=== PATIENT | male | born 1975 | race Caucasian/White ===

== ENCOUNTER 2018-06-24 10:44 | Observation (INO) ==
[2018-06-24 11:50] LABS: Baso % (Auto) 0.4 % (0.0-2.0); Eos # (Auto) 0.2 th/mm3 (0.0-0.4); Eos % (Auto) 4.3 % (0.0-4.0); Hematocrit 42.6 % (39.0-51.0); Hemoglobin 14.8 gm/dL (13.0-17.0); Lymph # (Auto) 1.7 th/mm3 (1.0-4.8); Mean Corpuscular HGB Conc 34.8 % (32.0-36.0); Mean Corpuscular Hemoglobin 31.1 pg (27.0-34.0); Mean Corpuscular Volume 89.3 fL (80.0-100.0); Mean Platelet Volume 8.2 fL (7.0-11.0); Mono # (Auto) 0.6 th/mm3 (0.0-0.9); Mono % (Auto) 9.6 % (0.0-8.0); Neut # (Auto) 3.3 th/mm3 (1.8-7.7); Neut % (Auto) 56.7 % (16.0-70.0); Platelet Count 147 th/mm3 (150-450); Red Blood Count 4.77 mil/mm3 (4.50-5.90); White Blood Count 5.8 th/mm3 (4.0-11.0)
--- NOTE | 2018-06-24 11:55 | ED ---
HPI General Chief Complaint: Chest Pain Stated Complaint: Chest pains Time Seen by Provider: 06/24/18 11:04 Source: patient Mode of arrival: ambulatory Limitations: no limitations History of Present Illness HPI narrative: Patient is a 43-year-old male presenting to the emergency department for evaluation of chest pain. Patient states it started last , and lasted for a few minutes. It was midsternal, sharp as if an ice pick was stabbing him in the chest. At that time he felt tingling in his arms, short of breath and felt dizzy. This resolved on its own. Patient was not exerting himself when it occurred. Since that time patient reports intermittent chest tightness, he feels as if he has cracked ribs and it hurts to breathe. Patient reports that he had flulike symptoms a week prior and initially attributed to that. He took some time off from working out at the gym. He went back yesterday and was jogging when the tightness resumed, he felt nauseated and he states his heart rate was elevated more than it normally would be when he is running. At that time the pain was a 9 out of 10, pain did not radiate. Symptoms started abruptly, they resolve on their own. Patient denies any family history of early heart disease. He denies any illicit drug use or tobacco use. Patient denies any history of heart disease hypertension. Patient went to [facility] this morning for routine checkup and was advised to come to the emergency department. MD complaint: chest pain STEMI Alert: No Onset (ago): week(s) (1) Duration: intermittent Onset: during rest and during exertion Pain location: substernal Severity: moderate Severity scale (1-10): 8 Quality: tightness and sharp Pain radiation: none Relieving factors: rest Exacerbating factors: exertion Context: recent illness Associated symptoms: dyspnea Treatments prior to arrival chest pain: none Related Data Home Medications Medication Instructions Recorded Confirmed alfuzosin 10 mg PO DAILY 06/24/18 06/24/18 tramadol 50 mg PO Q4-6H PRN 06/24/18 06/24/18 trospium 20 mg PO BID 06/24/18 06/24/18 Allergies Allergy/AdvReac Type Severity Reaction Status Date / Time bacitracin Allergy Rash Verified 06/24/18 11:11 [From Neosporin ([id number])] ketoconazole Allergy Rash Verified 06/24/18 11:11 neomycin Allergy Rash Verified 06/24/18 11:11 [From Neosporin ([id number])] polymyxin B Allergy Rash Verified 06/24/18 11:11 [From Neosporin ([id number])] Review of Systems ROS: all other systems reviewed are negative [facility] Medical History Medical History Benign prostatic disease (Acute) Diverticula of colon (Acute) Rib fracture (Acute) Social History Social History Substance History: No History of Abuse Second Hand Smoke Exposure: No Smoking Status: Never smoker How Often Do You Have a Drink Containing Alcohol: 2 to 4 times a month Recent Travel in [facility] within the Last 8 Weeks: No Recent Out of Country Travel within the Last 8 Weeks: No Immunization History Tetanus Immunization: Unsure Hx Influenza Vaccine This Season: No Exam Narrative Exam Narrative: GENERAL: Well-developed, well-nourished, well-appearing male. Presenting in no acute distress. SKIN: Focused skin assessment warm/dry. HEAD: Atraumatic. Normocephalic. EYES: Pupils equal and round. No scleral icterus. No injection or drainage. ENT: No nasal bleeding or discharge. Mucous membranes pink and moist. NECK: Trachea midline. No JVD. CARDIOVASCULAR: Regular rate and rhythm. No murmur appreciated. RESPIRATORY: No accessory muscle use. Clear to auscultation. Breath sounds equal bilaterally. GASTROINTESTINAL: Abdomen soft, non-tender, nondistended. Hepatic and splenic margins not palpable. MUSCULOSKELETAL: No obvious deformities. No clubbing. No cyanosis. No edema. NEUROLOGICAL: Awake and alert. No obvious cranial nerve deficits. Motor grossly within normal limits. Normal speech. PSYCHIATRIC: Appropriate mood and affect; insight and judgment normal. Course Initial Documented Vital Signs Temperature 98.3 F 06/24/18 10:51 Pulse Rate 81 06/24/18 10:51 Respiratory Rate 16 06/24/18 10:51 Blood Pressure 141/70 H 06/24/18 10:51 Pulse Oximetry 97 06/24/18 10:51 Last Documented Vital Signs Temperature 98.3 F 09/20/18 10:51 Pulse Rate 81 06/24/18 10:57 Respiratory Rate 18 06/24/18 10:57 Blood Pressure 138/73 06/24/18 10:57 Pulse Oximetry 95 06/24/18 10:57 Clinical Decision Support PERC Rule Age greater than or equal to 50: No HR greather than or equal to 100: No Sa02 on room air is less than 95%: No (SAT IS 95) Unilateral Leg Swelling: No Hemoptysis: No Recent Surgery or Trauma: No Prior PE or DVT: No Hormone Use: No Borderline O2 sat, will obtain D-dimer to r/o PE Medical Decision Making MDM Narrative Medical decision making narrative: Patient is a well-appearing 43-year-old male presenting for evaluation of chest pain that started 1 week ago. Patient's vital signs are stable, labs and imaging ordered and pending. Patient was given 324 of chewable aspirin. Chest x-ray shows no acute disease. EKG shows normal sinus rhythm, this was reviewed by my attending physician as well. Initial set of cardiac enzymes are unremarkable. Borderline PERC score due to patients O2 sat, D-Dimer evaluated to rule out PE. D-Dimer is negative. Discussed findings with my attending physician. Patient was placed in the chest pain center for further evaluation, the abrupt onset of the chest pain while running yesterday is suspicious. Admit orders placed. Patient advised on findings. Patient is agreeable to stay. Medical Screen Exam Complete: Yes Emergency Medical Condition: Yes Differential Diagnosis Differential Diagnosis: ACS versus USA versus costochondritis versus bronchitis versus pneumonia versus metabolic abnormality versus other Lab Data Lab results reviewed: Yes I reviewed the patient's lab results. Result diagrams: 06/24/18 11:18 06/24/18 11:18 Lab Results 06/24/18 06/24/18 06/24/18 Range/Units 11:18 11:18 11:18 WBC 5.8 (4.0-11.0) th/mm3 RBC 4.77 (4.50-5.90) mil/mm3 Hgb 14.8 (13.0-17.0) gm/dL Hct 42.6 (39.0-51.0) % MCV 89.3 (80.0-100.0) fL MCH 31.1 (27.0-34.0) pg MCHC 34.8 (32.0-36.0) % RDW 13.0 (11.6-17.2) % Plt Count 147 L (150-450) th/mm3 MPV 8.2 (7.0-11.0) fL Neut % (Auto) 56.7 (16.0-70.0) % Lymph % (Auto) 29.0 (9.0-44.0) % Wirt % (Auto) 9.6 H (0.0-8.0) % Eos % (Auto) 4.3 H (0.0-4.0) % Baso % (Auto) 0.4 (0.0-2.0) % Neut # (Auto) 3.3 (1.8-7.7) th/mm3 Lymph # (Auto) 1.7 (1.0-4.8) th/mm3 Wirt # (Auto) 0.6 (0.0-0.9) th/mm3 Eos # (Auto) 0.2 (0.0-0.4) th/mm3 Baso # (Auto) 0.0 (0.0-0.2) th/mm3 WBC Differential . Differential Comment Auto diff final PT 10.5 (9.8-11.6) sec INR 1.0 Ratio APTT 27.6 (24.3-30.1) sec D-Dimer Quant (PE/DVT) (0.00-0.50) mg/L FEU Sodium (136-145) meq/L Potassium (3.5-5.1) meq/L Chloride (98-107) meq/L Carbon Dioxide (21.0-32.0) meq/L Anion Gap (5-15) meq/L BUN (7-18) mg/dL Creatinine (0.60-1.30) mg/dL Estimated GFR (>89) mL/min Random Glucose (74-106) mg/dL Calcium (8.5-10.1) mg/dL Magnesium (1.5-2.5) mg/dL Total Bilirubin (0.2-1.0) mg/dL AST (15-37) U/L ALT (12-78) U/L Alkaline Phosphatase (45-117) U/L Total Creatine Kinase 209 (39-308) U/L CK-MB (CK-2) (0.5-3.6) ng/mL Troponin I (0.02-0.05) ng/mL Total Protein (6.4-8.2) g/dL Albumin (3.4-5.0) g/dL Lipase 103 (73-393) U/L 06/24/18 06/24/18 Range/Units 11:18 11:18 WBC (4.0-11.0) th/mm3 RBC (4.50-5.90) mil/mm3 Hgb (13.0-17.0) gm/dL Hct (39.0-51.0) % MCV (80.0-100.0) fL MCH (27.0-34.0) pg MCHC (32.0-36.0) % RDW (11.6-17.2) % Plt Count (150-450) th/mm3 MPV (7.0-11.0) fL Neut % (Auto) (16.0-70.0) % Lymph % (Auto) (9.0-44.0) % Wirt % (Auto) (0.0-8.0) % Eos % (Auto) (0.0-4.0) % Baso % (Auto) (0.0-2.0) % Neut # (Auto) (1.8-7.7) th/mm3 Lymph # (Auto) (1.0-4.8) th/mm3 Wirt # (Auto) (0.0-0.9) th/mm3 Eos # (Auto) (0.0-0.4) th/mm3 Baso # (Auto) (0.0-0.2) th/mm3 WBC Differential Differential Comment PT (9.8-11.6) sec INR Ratio APTT (24.3-30.1) sec D-Dimer Quant (PE/DVT) 0.26 (0.00-0.50) mg/L FEU Sodium 139 (136-145) meq/L Potassium 4.0 (3.5-5.1) meq/L Chloride 105 (98-107) meq/L Carbon Dioxide 26.2 (21.0-32.0) meq/L Anion Gap 8 (5-15) meq/L BUN 16 (7-18) mg/dL Creatinine 0.90 (0.60-1.30) mg/dL Estimated GFR Greater than 89 (>89) mL/min Random Glucose 82 (74-106) mg/dL Calcium 8.6 (8.5-10.1) mg/dL Magnesium 1.9 (1.5-2.5) mg/dL Total Bilirubin 0.5 (0.2-1.0) mg/dL AST 21 (15-37) U/L ALT 23 (12-78) U/L Alkaline Phosphatase 63 (45-117) U/L Total Creatine Kinase 208 (39-308) U/L CK-MB (CK-2) Less than 1.0 (0.5-3.6) ng/mL Troponin I Less than 0.02 L (0.02-0.05) ng/mL Total Protein 7.6 (6.4-8.2) g/dL Albumin 4.0 (3.4-5.0) g/dL Lipase (73-393) U/L Imaging Data Radiologist's impression: Chest X-Ray 06/24/18 11:13 CONCLUSION: Negative examination. ECG Data EKG Prior to Arrival: No Interpretation: EKG shows normal sinus rhythm with a rate of 80, Discharge Plan Discharge Disposition Patient Disposition: 30 Still Patient Discharge Condition Condition: Good Discharge Details Diagnosis: Atypical chest pain Physicians Team ED Provider: Ramses Franklin ED Midlevel Provider: Karrie Franco Primary Care Provider: [facility] Attending Provider: Wilberto Jimenez Discharge Interventions Interventions: Vital Signs Last Done: 06/24/18 10:57 Status ED Status: Admitted Observation Patient
[2018-06-24 11:58] LABS: Activated Partial Thrombo Time 27.6 sec (24.3-30.1); Prothrombin Time 10.5 sec (9.8-11.6)
[2018-06-24 12:11] LABS: Alanine Aminotransferase 23 U/L (12-78); Anion Gap 8 meq/L (5-15); Aspartate Aminotransferase 21 U/L (15-37); Blood Urea Nitrogen 16 mg/dL (7-18); Calcium 8.6 mg/dL (8.5-10.1); Carbon Dioxide 26.2 meq/L (21.0-32.0); Chloride 105 meq/L (98-107); Glomerular Filtration Rate Greater Than 89 mL/min (>89); Glucose,Random 82 mg/dL (74-106); Magnesium 1.9 mg/dL (1.5-2.5); Sodium 139 meq/L (136-145)
[2018-06-24 12:14] LABS: Alkaline Phosphatase 63 U/L (45-117); Creatine Kinase 208 U/L (39-308); Total Protein 7.6 g/dL (6.4-8.2)
[2018-06-24 12:58] LABS: Lipase 103 U/L (73-393)
[2018-06-24 13:00] LABS: Creatine Kinase 209 U/L (39-308)
[2018-06-24] MEDS ORDERED: Acetaminophen/Codeine 300/30 MG Tablet PO ONE (13:39)
--- NOTE | 2018-06-24 17:16 | ECG ---
Date Performed: 06/24/2018 Time Performed: 11:06:01 PTAGE: 43 years EKG: Sinus rhythm NORMAL ECG INTERPRETATION BASED ON A DEFAULT AGE OF 39 YEARS NO PREVIOUS TRACING DOCTOR: Maksim Mcintyre Interpretating Date/Time 06/24/2018 17:14:53
--- NOTE | 2018-06-26 10:26 | TR ---
Date Performed: 06/24/2018 Time Performed: 15:59:06 DOCTOR: Maurisio Fontaine DRUG LIST: CLINICAL HISTORY: ATYPICAL CHEST PAIN REASON FOR TEST: ATYPICAL CHEST PAIN REASON FOR ENDING: OBSERVATION: CONCLUSION: CANDIEC PROTOCOL. NO CP. TEST STOPPED AFTER EXCEEDING GOAL HR SECONDARY TO SOB AND LEG FATIGUE.Maximum IB=152 % Max HR Achieved=97.0% Resting KJ=878/80 Total Exercise Time=10:16 COMMENTS: Low probability stress test
== END 2018-06-24 17:14 | disposition home or self-care (01) ==
LOC: NEPE 10:44 → NEDA 10:44 → NEPFCDU 16:17
PROVIDERS: ADMIT Internal Medicine Cardiovascular Disease; ATTEND Internal Medicine Cardiovascular Disease